=== PATIENT | male | born 1995 | race Asian ===

== ENCOUNTER 2017-06-19 23:40 | Emergency (ER) | payer OTHER ==
[~2017-06-19] VITALS: Ht 172.7 cm; Wt 67.9 kg
[2017-06-19 23:45] VITALS: TEMP 37.2; Ht 172.7 cm; Wt 67.9 kg
[2017-06-20] MEDS ORDERED: LIDOCAINE/EPINEPHRINE 1% 20 ML VIAL INFIL ONE
--- NOTE | 2017-06-20 00:07 | EMERGENCY ROOM VISIT NOTE ---
History Report prepared by Lisy: Sarah Reilly Under the Supervision of: Dr. Darell Ames M.D. First contact with patient: 23:51 Chief Complaint: HEAD INJURY (MINOR) Stated Complaint: STINGING,NAUSEA History of Present Illness The patient is a 21 year old male with a past medical history of a left wrist fracture who presents to the ED with a cc of a head injury beginning an hour prior to arrival. 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 He reports that his vision went black when this happened and that his head was bleeding. He also reports hitting his right knee when he fell. Positive vomiting. Negative numbness, tingling, visional changes, neck pain, and LOC. Source of History: patient Onset: an hour prior to arrival Position: head Quality: other (injury ) Associated Symptoms: + vomiting, No LOC, No neck pain, No numbness Review of Systems See HPI for pertinent positives and negatives. A total of ten systems were reviewed and were otherwise negative. Past Medical & Surgical Medical Problems: (1) Left wrist fracture Family History No pertinent family history stated. Social History Smoking Status: Never Smoker Alcohol Use: none Occupation Status: [employer] student Current/Historical Medications No Active Prescriptions or Reported Meds Allergies Coded Allergies: No Known Allergies (Unverified , 06/20/17) Physical Exam Vital Signs Date Time Temp Pulse Resp B/P (MAP) Pulse Ox O2 Delivery O2 Flow Rate FiO2 06/20/17 01:37 67 18 111/85 98 06/20/17 00:01 18 06/19/17 23:45 37.2 70 16 138/87 98 Room Air Physical Exam GENERAL: Awake, alert, well-appearing, NAD HENT: Normocephalic. 2 cm laceration to left lateral eyebrow hemostatic. EYES: Normal conjunctiva. Sclera non-icteric. NECK: Supple. No nuchal rigidity. FROM. RESPIRATORY: CTAB, no rhonchi, wheezing, crackles CARDIAC: RRR, no MRG ABDOMEN: Soft, NTND, BS+ BACK: No midline or spine TTP MSK: No pain to the chest or lateral upper and lower extremities. Pain to medial superior aspect of knee. Is able to flex and extend with mild pain. NV intact distally. NEURO: PERRL b/l, EOM intact, CN 2-12 intact, good finger to nose, no dysmetria , no drift, 5/5 b/l UE and LE strength, no sensory deficit SKIN: No rash or jaundice noted. Medical Decision & Procedures ER Provider Diagnostic Interpretation: Right Knee X-ray: Bony surfaces well demarcated. Joint line symmetric. Knee does not appear to be dislocated. Medications Administered Medications (Trade) Dose Ordered Sig/Sasha Route Start Time Stop Time Status Last Admin Dose Admin Lidocaine/ Epinephrine (Xylocaine/Epine 1% Inj) 20 ml NOW ONCE INFIL 06/20/17 00:00 06/20/17 00:01 DC 06/20/17 00:07 20 ML Diphtheria/ Pertussis/Tetanus Vacc (Adacel Inj) 0.5 ml ONCE ONCE IM. 06/20/17 00:15 06/20/17 00:16 DC 06/20/17 00:09 0.5 ML Procedure Location: left eyebrow Total length: 2 cm Complexity: simple Verbal consent was obtained after the risks and benefits were explained, including but not limited to bleeding, scarring, infection, pain, and bone/joint /nerve damage. At this time, the risks of the procedure are less than the risks of NOT performing the procedure. A time out was taken and the correct patient and site identified. The skin was prepped with betadine. The target area was anesthetized with 4 ml of 1% lidocaine without epinephrine. Copious irrigation was performed using saline. The skin was re-prepped with betadine and a sterile field set. The wound was explored for foreign bodies and none found. Examination revealed no injury to deep structures such as tendons, bone, or significant blood vessels. Debridement was not performed. The wound edges were approximated using 5-0 sutures with 4 simple interrupted Ethilon sutures. Hemostasis and excellent approximation was achieved. Antibacterial ointment and a sterile dressing applied. Detailed wound care instructions and signs and symptoms of infection reviewed with the patient. No complications and the patient tolerated the procedure well. ED Course 2355: The patient was evaluated in room B6. A complete history and physical exam was performed. 0100: I updated the patient on his results. 0140: I reevaluated the patient. Discussed results and discharge instructions: He verbalized understanding and agreement. The patient is ready for discharge. Medical Decision The patient is a 21 year old male with a past medical history of a left wrist fracture who presents to the ED with a cc of a head injury beginning an hour prior to arrival. Differentials include: laceration, sprain, contusion, and dislocation. Patient was seen and evaluated the bedside. Patient was doing some practicing was trying to aside flipped and struck the ground. Patient noted he was bleeding from his left face. Patient denies any LOC does not take blood thinning medications. Patient has no numbness tingling or weakness. Patient denies any neck pain. Patient did complain of some mild right knee pain. On exam patient did have some mild superior knee pain. Patient had no neurovascular deficits distally. Patient also did have a laceration to the left supraorbital area. Patient did have any film which appeared negative by my read for acute fracture or dislocation. Patient was able to ambulated without difficulty. Patient did have a laceration repair after it was copiously irrigated. Patient was given wound care instructions and follow-up instructions. Patient was given follow-up, discharge, return precautions. Patient does not need a CT of the head or CT of the C-spine patient's clinical exam and history. Patient discharged home. Medication Reconcilliation Current Medication List: was personally reviewed by me Blood Pressure Screening Patient's blood pressure: Normal blood pressure Impression Primary Impression: Closed head injury Additional Impressions: Laceration of eyebrow, left Knee pain, right Scribe Attestation The scribe's documentation has been prepared under my direction and personally reviewed by me in its entirety. I confirm that the note above accurately reflects all work, treatment, procedures, and medical decision making performed by me. Departure Information Dispostion Home / Self-Care Prescriptions No Active Prescriptions or Reported Meds Referrals No Doctor, Assigned (PCP) [facility] Forms HOME CARE DOCUMENTATION FORM, IMPORTANT VISIT INFORMATION Patient Instructions ED Laceration All, ED Wound Care, My [facility] Additional Instructions Please return to the emergency department if you have worsening or recurrent symptoms not amenable to at-home treatment. Please call for a follow-up appointment with her primary care physician. Please take your medications as prescribed. If you have other concerns and/or complaints please feel free to also call your primary care physician's office or return the ED for further evaluation, management, and treatment. Please get your sutures removed in 7-10 days. Apply bacitracin/antibiotic ointment. You may shower and wash w/ soap/water and/or shampoo. Do not soak. You may take 600 mg Ibuprofen every 6 hours as needed for pain with food for no more than 2 consecutive days. You may take tylenol 1000mg every 6 hours as needed for pain. You may take motrin and tylenol separately or at the same time. You have been examined and treated today on an emergency basis only. This is not a substitute for, or an effort to provide, complete comprehensive medical care. It is impossible to recognize and treat all injuries or illnesses in a single emergency department visit. It is therefore important that you follow up closely with [facility]. Call as soon as possible for an appointment. Thank you for your time and consideration. I look forward to speaking with you again soon. Please don't hesitate to call us if you have any questions. Problem Qualifiers Primary Impression: Closed head injury Encounter type: initial encounter Qualified Codes: S09.90XA - Unspecified injury of head, initial encounter Additional Impressions: Laceration of eyebrow, left Encounter type: initial encounter Qualified Codes: S01.112A - Laceration without foreign body of left eyelid and periocular area, initial encounter Knee pain, right Chronicity: acute Qualified Codes: M25.561 - Pain in right knee
[2017-06-20] MEDS ORDERED: DIPHTHERIA/TETANUS/PERTUSSIS 0.5 ML SYR/VIAL IM. ONE (00:15)
[2017-06-20 01:37] VITALS: BP 111/85; PULSE 67; O2SAT 98
--- NOTE | 2017-06-20 06:34 | DIAGNOSTIC IMAGING REPORT ---
R KNEE 3 VIEWS HISTORY: 21 years-old Male s/p fall to R knee acute right knee pain status post fall. Pain with movement COMPARISON: None available TECHNIQUE: 3 views of the right knee FINDINGS: No acute fracture, dislocation or significant degenerative changes. Small joint effusion with mild soft tissue swelling. No opaque foreign body. IMPRESSION: Mild soft tissue swelling and small joint effusion without acute fracture or dislocation. The above report was generated using voice recognition software. It may contain grammatical, syntax or spelling errors. Electronically signed by: Lawrence Hollins M.D. 06/20/2017 6:33 AM Dictated Date/Time: 06/20/2017 6:32 AM
== END 2017-06-20 01:38 | disposition home or self-care (01) ==
LOC: C.EDB 23:42
DX: S09.90XA Unspecified injury of head, initial encounter (principal); S01.112A Laceration without foreign body of left eyelid and periocular area, initial encounter; M25.561 Pain in right knee; W19.XXXA Unspecified fall, initial encounter; Z23 Encounter for immunization